=== PATIENT | male | born 1975 | race Caucasian/White ===

== ENCOUNTER 2018-02-17 15:08 | Emergency (ER) | payer SELFPAY ==
[~2018-02-17] VITALS: Ht 175.3 cm; Wt 72.6 kg
== END 2018-02-17 15:23 | disposition left against medical advice (07) ==
LOC: ER 15:08
DX: Z53.21 Procedure and treatment not carried out due to patient leaving prior to being seen by health care provider (principal); M79.629 Pain in unspecified upper arm